=== PATIENT | female | born 1980 | race Caucasian/White ===

== ENCOUNTER 2017-09-14 13:43 | Emergency (ER) | payer OTHER ==
--- NOTE | 2017-09-14 14:11 | ERPHSYRPT ---
- History of Present Illness Time Seen by Provider: 09/14/17 13:57 Source: patient Exam Limitations: no limitations Patient Subjective Stated Complaint: PT REPORTS LEFT SIDED MOUTH PAIN BEGINNING A FEW DAYS AGO REPORTS INCREASING WITH TIME-UNSURE OF FEVER-REPORTS PRESSURE AND PAIN TO THAT SIDE OF FACE Triage Nursing Assessment: PT PINK WARM AND [id number] EASY AND NONLABORED- DENTAL CARRIES NOTED Physician History: The patient is a 36-year-old female complaining that she is had some upper left front molar pain that is been worsening over the past week. The pain has gone up into her left nose and cheek. The pain is worse when she opens her mouth and breathes in. The pain is worse with hot or cold liquids. She thinks she may have a cavity. She has tried several dentist but is unable to get in for a minimum of 2 weeks. She requests an antibiotic and some pain relief. Her past medical history is unremarkable. Timing/Duration: gradual onset Severity: moderate ENT Location: dental Prearrival Treatment: over the counter meds Associated Symptoms: facial pain/swelling Allergies/Adverse Reactions: azithromycin [From Zithromax] Adverse Reaction (Severe, Verified 09/14/17 13:54) Vomiting Home Medications: Lisinopril 10 mg [Zestril 10 MG] 10 mg PO DAILY 09/14/17 [History] Hx Tetanus, Diphtheria Vaccination/Date Given: Yes Hx Influenza Vaccination/Date Given: No Hx Pneumococcal Vaccination/Date Given: No Immunizations Up to Date: Yes - Review of Systems Constitutional: No Fever, No Chills Eyes: No Symptoms Ears, Nose, & Throat: Mouth Pain Respiratory: No Cough, No Dyspnea Cardiac: No Chest Pain, No Edema, No Syncope Abdominal/Gastrointestinal: No Abdominal Pain, No Nausea, No Vomiting, No Diarrhea Genitourinary Symptoms: No Dysuria Musculoskeletal: No Back Pain, No Neck Pain Skin: No Rash Neurological: No Dizziness, No Focal Weakness, No Sensory Changes Psychological: No Symptoms Endocrine: No Symptoms Hematologic/Lymphatic: No Symptoms Immunological/Allergic: No Symptoms All Other Systems: Reviewed and Negative - Past Medical History Pertinent Past Medical History: No - Past Surgical History Past Surgical History: Yes Musculoskeletal: Orthopedic Surgery Other Surgical History: right shoulder surgery - Social History Smoking Status: Never smoker Exposure to second hand smoke: No Drug Use: none Patient Lives Alone: No Significant Family History: no pertinent family hx - Female History Hx Last Menstrual Period: LAST WEEK Hx Now: No - Nursing Vital Signs Nursing Vital Signs: Initial Vital Signs Temperature 98.2 F 09/14/17 13:50 Pulse Rate 89 09/14/17 13:50 Respiratory Rate 18 09/14/17 13:50 Blood Pressure 189/100 09/14/17 13:50 O2 Sat by Pulse Oximetry 98 09/14/17 13:50 Pain Scale Pain Intensity 20 - Physical Exam General Appearance: no apparent distress, alert Eye Exam: bilateral eye: normal inspection Ear Exam: bilateral ear: auricle normal Nasal Exam: normal inspection Throat Exam: dental tenderness (left upper anterior molar) Neck Exam: supple Cardiovascular/Respiratory Exam: normal breath sounds, regular rate/rhythm Abdominal Exam: non-tender, soft Neurologic Exam: alert, oriented x 3, sensation nml, No motor deficits Skin Exam: normal color, warm, dry SpO2 Interpretation: normal SpO2: 98 Oxygen Delivery: Room Air - Progress Progress: improved Counseled pt/family regarding: diagnosis, need for follow-up (dentist) - Departure Time of Disposition: 14:16 Departure Disposition: Home Clinical Impression: Pain, dental Condition: Stable Critical Care Time: No Referrals: PRATIK NAIR [Primary Care Provider] - Additional Instructions: You have dental pain that is likely caused by a cavity exposing the nerve in the tooth. You were given Toradol 60 mg IM in the ER. Take penicillin 500 mg 4 times a day for 10 days. Take naproxen 500 mg every 12 hours as needed for pain. Take Tylenol No. 3 one tablet every 4-6 hours as needed for pain. Apply dental wax [id number] to the painful tooth as needed. Follow-up with dentist at the soonest possible appointment. Prescriptions: Codeine Phosphate/APAP #3 [Tylenol #3 Tablet] 1 tab PO Q4-6HPRN PRN #10 tablet PRN Reason: Pain Naproxen 500 mg PO BID PRN #30 tablet. Penicillin V Potassium 500 mg PO QID #40 tablet
[2017-09-14] MEDS ORDERED: TORAdol 30 mg Injection IM ONE (14:17)
[2017-09-14] MEDS ORDERED: TORAdol 30 mg Injection ONE (14:22)
[2017-09-14 14:34] VITALS: BP 135/88; PULSE 88; O2SAT 97
== END 2017-09-14 14:33 | disposition home or self-care (01) ==
LOC: ED 13:43
DX: K08.89 Other specified disorders of teeth and supporting structures (principal)
CPT/HCPCS: 96372; 99283; 99284; J1885

== ENCOUNTER 2022-06-22 15:41 | Emergency (ER) | payer OTHER ==
[2022-06-22] MEDS ORDERED: TORAdol 30 mg Injection IM ONE (16:25)
[2022-06-22] MEDS ORDERED: TORAdol 30 mg Injection ONE (16:30)
--- NOTE | 2022-06-22 16:34 | ERPHSYRPT ---
- History of Present Illness Time Seen by Provider: 06/22/22 16:00 Source: patient Exam Limitations: no limitations Patient Subjective Stated Complaint: Pt "tweeked" her back approx 4-5 months ago and has been taking Tylenol and IBU ever since and has been taking way too much, the pain is at the lower center and radiates to the right side Triage Nursing Assessment: Pt brought self to the ER, vitals wnl, rates pain as 8/10, pulses normal, states that she hasn't been to her doctor because she works 6 days a week so she hasn't been to the doctor although there has been some hydrocodone written for her, pt's job requires her to lift and bend, doesn't appear to be in any distress Physician History: Patient is a 41-year-old female presents to the emergency department for evaluation of back pain. Patient has been experiencing back pain for approximately 4 to 5 months. 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 Patient states that her current job requires her to lift and bend and twist. So patient's back pain started approximately 6 months into her physically active job. Patient also [employer] wood for heat. Patient states that lifting wood has exacerbated her back pain. Patient was working this evening and her coworkers advised her to come to our ED as she appeared uncomfortable. There has been no acute change in her baseline level of back pain. Patient has not followed up with her primary care doctor simply because she has been too busy working and cannot take any time off. Pain described as an ache that is midline however radiates to the right SI joint area. No blunt trauma. No fever. No change in bowel bladder function. No saddle anesthesia. Patient currently rates pain 8 out of 10. Patient has been taking Tylenol and ibuprofen at home. Patient also has a prescription for hydrocodone. Patient is otherwise healthy. She denies a history of back pain otherwise. Patient voices no other complaints or concerns at this time. Portions of this note were created with voice recognition technology. There may be grammatical, spelling, punctuation or sound alike errors Timing/Duration: other (4 to 5 months) Method of Injury: lifting, twisted, other (Repetitive motion, lifting twisting bending) Back Pain Location: lumbar spine Severity of Pain-Max: moderate Severity of Pain-Current: mild Associated Symptoms: denies symptoms Previous symptoms: no prior history Allergies/Adverse Reactions: azithromycin [From Zithromax] Adverse Reaction (Severe, Verified 09/14/17 13:54) Vomiting Home Medications: Lisinopril 10 mg [Zestril 10 MG] 20 mg PO DAILY 09/14/17 [History] Amlodipine Besylate 10 mg PO DAILY 06/22/22 [History] Atorvastatin Calcium 20 mg PO DAILY 06/22/22 [History] Metformin HCl 500 mg [Glucophage 500 MG] 500 mg PO BIDWM 06/22/22 [History] Phentermine HCl 37.5 mg PO DAILY 06/22/22 [History] Hx Tetanus, Diphtheria Vaccination/Date Given: Yes Hx Influenza Vaccination/Date Given: No Hx Pneumococcal Vaccination/Date Given: No Travel Risk - International Travel Have you traveled outside of the country in past 3 weeks: No - Coronavirus Screening Are you exhibiting any of the following symptoms?: No Close contact with a COVID-19 positive Pt in past 14-21 Days: No - Vaccine Status Have you recieved a Covid-19 vaccination: Yes 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[employer] - Vaccination Dates Date of 2cond Vaccination (if applicable): unk - Review of Systems Constitutional: No Symptoms, No Fever, No Chills Eyes: No Symptoms Ears, Nose, & Throat: No Symptoms Respiratory: No Symptoms, No Cough, No Dyspnea Cardiac: No Symptoms, No Chest Pain, No Edema, No Syncope Abdominal/Gastrointestinal: No Symptoms, No Abdominal Pain, No Nausea, No Vomiting, No Diarrhea Genitourinary Symptoms: No Symptoms, No Dysuria Musculoskeletal: No Symptoms, No Back Pain, No Neck Pain Skin: No Symptoms, No Rash Neurological: No Symptoms, No Dizziness, No Focal Weakness, No Sensory Changes Psychological: No Symptoms Endocrine: No Symptoms Hematologic/Lymphatic: No Symptoms Immunological/Allergic: No Symptoms All Other Systems: Reviewed and Negative - Past Medical History Pertinent Past Medical History: Yes Cardiac History: Hypertension Endocrine Medical History: Diabetes Type II - Past Surgical History Past Surgical History: Yes Musculoskeletal: Orthopedic Surgery Other Surgical History: right shoulder surgery - Social History Smoking Status: Never smoker Exposure to second hand smoke: Yes Drug Use: marijuana Patient Lives Alone: No Significant Family History: no pertinent family hx - Female History Hx Now: No (depo) - Nursing Vital Signs Nursing Vital Signs: Initial Vital Signs Temperature 98.1 F 06/22/22 15:49 Pulse Rate 90 06/22/22 15:49 Blood Pressure 128/85 06/22/22 15:49 O2 Sat by Pulse Oximetry 100 06/22/22 15:49 Pain Scale Pain Intensity [Right Lower 8 Lateral Back] Pain Intensity 8 - Physical Exam General Appearance: no apparent distress, alert Eye Exam: PERRL/EOMI, eyes nml inspection Ears, Nose, Throat Exam: normal ENT inspection, TMs normal, pharynx normal Neck Exam: normal inspection, non-tender, supple, full range of motion, No meningismus, No midline tenderness Respiratory Exam: normal breath sounds, lungs clear, airway intact, No respiratory distress Cardiovascular Exam: regular rate/rhythm, normal heart sounds, normal peripheral pulses Gastrointestinal Exam: soft, No tenderness, No mass Back Exam: other (Tenderness palpation over the right SI joint. Slightly towards the center as well however overlying soft tissue intact. No signs of trauma. No radiation down to the lower extremities.) Extremity Exam: normal inspection, normal range of motion, No calf tenderness, No pedal edema Peripheral Pulses: dorsalis-pedis (R): 2+, dorsalis-pedis (L): 2+ Neurologic Exam: alert, oriented x 3, cooperative, quality assurance tester II-XII nml as tested, normal mood/affect, nml station & gait, sensation nml, No motor deficits Skin Exam: normal color, warm, dry, No rash Lymphatic Exam: No adenopathy SpO2 Interpretation: normal SpO2: 100 O2 Delivery: Room Air - Course Nursing assessment & vital signs reviewed: Yes - Radiology Exams L-Spine X-ray Interpretation: Teleradiologist Report (6 lumbar segments. Multilevel endplate spurring L6 L5 degenerative facet hypertrophy. Otherwise negative) Ordered Tests: Active Orders 24 hr Category Date Time Status LUMBAR LIMITED (2 OR 3 VIEWS) Stat Exams 06/22/22 16:24 Completed Medication Summary Discontinued Medications Generic Name Dose Route Start Last Admin Trade Name Freq PRN Reason Stop Dose Admin Ketorolac Tromethamine 30 mg 06/22/22 16:25 06/22/22 16:31 Ketorolac Tromethamine 30 Mg/Ml Inj IM 06/22/22 16:26 30 mg STAT ONE Administration Ketorolac Tromethamine Confirm 06/22/22 16:30 Ketorolac Tromethamine 30 Mg/Ml Inj Administered 06/22/22 16:31 Dose 30 mg .ROUTE .STK-MED ONE Lab/Rad Data: Laboratory Results 06/22/22 Range/Units 16:28 Urine Color YELLOW (YELLOW) Urine Appearance SLIGHTLY CLOUDY A (CLEAR) Urine pH 5.0 (5-6) Ur Specific [place] >=1.030 A (1.005-1.025) POC Urine Protein Conf NEGATIVE (Negative) Urine Ketones NEGATIVE (NEGATIVE) Urine Nitrite NEGATIVE (NEGATIVE) Urine Bilirubin NEGATIVE (NEGATIVE) Urine Urobilinogen 0.2 (0-1) mg/dL Urine Leukocytes SMALL A (NEGATIVE) Urine RBC MODERATE A (0-5) Omid/ul Urine Microscopic RBC Pending Urine Microscopic WBC Pending Ur Epithelial Cells Pending Urine Bacteria Pending Ur Culture Indicated? Pending Urine Glucose NEGATIVE (NEGATIVE) mg/dL - Progress Progress: improved Progress Note: Patient is a 41-year-old female presents to our ED for evaluation of back pain. Physical exam reveals some tenderness lower midline spine and right SI joint. Overlying soft tissue intact. Patient symptoms are localized. No systemic manifestations pain is acute on chronic. Complexity is mild. No significant comorbidities to attribute her symptoms to. No history of back pain however she has been experiencing back pain since she started her new job which is physically demanding. X-ray lumbar spine ordered. Mild degenerative changes observed. No fractures or dislocations. Patient received a dose of Toradol for pain control. In light of patient's history of diabetes we did not administer a dose of prednisone as this would spike her blood sugar. Patient reassessed. Pain significantly improved. Patient states she is ready for discharge. Plan of care discussed with patient. She agrees to follow-up with her primary care doctor in 48 hours for reevaluation. Patient may likely benefit from a physical therapy evaluation/work hardening/ergonomic training as patient's job requires excessive lifting twisting and bending. Patient has means to follow through with follow-up. Complexity of problem is mild. Amount and complexity of data reviewed and analyzed is mild. Risks of complication and/or morbidity/mortality of patient management is mild. No critical care time. Patient served as a reliable independent historian. Time spent during discharge 5 to 10 minutes. Patient voices no other complaints or concerns at this time. Portions of this note were created with voice recognition technology. There may be grammatical, spelling, punctuation or sound alike errors 06/22/22 17:20 Counseled pt/family regarding: lab results, diagnosis, need for follow-up, rad results - Departure Departure Disposition: Home Clinical Impression: Back pain, Lumbosacral strain, Repetitive motion injury Condition: Stable Critical Care Time: No Referrals: PRATIK NAIR [Primary Care Provider] - Follow up/PCP as directed Additional Instructions: Discharge/Care Plan ALBERT CELESTE TYRELL was seen on 06/22/22 in the Emergency Room. The patient was counseled regarding Diagnosis,Lab results, Imaging studies, need for follow up and when to return to the Emergency Room. Prescriptions given: Discharge Note I have spoken with the patient and/or caregivers. I have explained the patient's condition, diagnosis and treatment plan based on the information available to me at this time. I have answered the patient's and/or caregiver's questions and addressed any concerns. The patient and/or caregivers have as good understanding of the patient's diagnosis, condition and treatment plan as can be expected at this point. The vital signs have been stable. The patient's condition is stable and appropriate for discharge from the emergency department. The patient will pursue further outpatient evaluation with the primary care physician or other designated or consulting physician as outlined in the discharge instructions. The patient and/or caregivers are agreeable to this plan of care and follow-up instructions have been explained in detail. The patient and/or caregivers have received these instruction. The patient/and or caregivers are aware that any significant change in condition or worsening of symptoms should prompt an immediate return to this or the closest emergency department or call 911.
[2022-06-22 16:59] LABS: Appearance SLIGHTLY CLOUDY (CLEAR); Bilirubin NEGATIVE (NEGATIVE); Glucose NEGATIVE (NEGATIVE); Ketones NEGATIVE (NEGATIVE); Nitrite NEGATIVE (NEGATIVE); Protein,Urine Dip NEGATIVE (Negative); RBC MODERATE Ery/ul (0-5); Specific Gravity >=1.030 (1.005-1.025); Urobilinogen 0.2 mg/dL (0-1)
--- NOTE | 2022-06-22 16:59 | XRAY ---
Indication: Chronic low back pain for months. Comparison: None 3 view lumbar spine demonstrates 6 lumbar segments with minimal multilevel thoracolumbar endplate spurring and mild bilateral L6-S1 degenerative facet hypertrophy. No other bony, articular, or soft tissue abnormalities.
[2022-06-22 17:13] LABS: Bacteria Few /HPF (None Seen); Epithelial Cells Moderate /HPF (None Seen); WBC 51-100 /HPF (0-5)
[2022-06-22 17:25] VITALS: BP 117/82; PULSE 78
[2022-06-22 17:27] VITALS: O2SAT 100
[2022-06-22 17:31] LABS: Urine Cultured Indicated? YES
== END 2022-06-22 17:36 | disposition home or self-care (01) ==
LOC: ED 15:41
DX: S39.012A Strain of muscle, fascia and tendon of lower back, initial encounter (principal); X50.3XXA Overexertion from repetitive movements, initial encounter; Y99.0 Civilian activity done for income or pay; I10 Essential (primary) hypertension; E11.9 Type 2 diabetes mellitus without complications; Z79.891 Long term (current) use of opiate analgesic; Z79.84 Long term (current) use of oral hypoglycemic drugs; Z79.899 Other long term (current) drug therapy
CPT/HCPCS: 72100; 81015; 87086; 96372; 99283; J1885

== ENCOUNTER 2022-11-29 22:16 | Emergency (ER) | payer OTHER ==
--- NOTE | 2022-11-29 22:21 | ERPHSYRPT ---
- History of Present Illness Time Seen by Provider: 11/29/22 22:21 Source: patient Exam Limitations: no limitations Physician History: This is an overweight 42-year-old white female patient who has had dysuria and burning and swelling symptoms in the external and internal vaginal region intermittently for 2 months. She has seen several different physicians and outpatient clinics for this. She is never seen an infectious disease specialist or a diamond sizer and sorter. Approxi-1 month ago she was treated for urinary tract infection and trichomonas. She has been given several different treatments of Flagyl antibiotic followed by [facility] mouthwash for the post antibiotic thrush/fungal infection for being on antibiotic treatment. Patient has a history of hyperlipidemia, hypertension and type 2 diabetes. She is seen either her physician or outpatient [facility] a few times recently. Most recently she was seen at [facility] this morning. She was told to douche. Patient has no chest pain. She has had no fever. She has no abdominal pain. She is not short of breath. Patient states that she does not have vaginal discharge Timing/Duration: intermittent, worse, other (Intermittently over the last 2 months) Activites at Onset: none Quality: burning Onset Location: vulvar pain Pain Radiation: none Severity of Pain-Max: mild Severity of Pain-Current: mild Prior abdominal problems: similar symptoms, STD (Approximately 1 month ago was diagnosed with trichomonas) Sexual intercourse history: non-contributory Modifying Factors: Improves With: nothing Associated Symptoms: denies symptoms Allergies/Adverse Reactions: azithromycin [From Zithromax] Adverse Reaction (Severe, Verified 11/29/22 22:56) Vomiting Home Medications: Lisinopril 10 mg [Zestril 10 MG] 20 mg PO DAILY 09/14/17 [History] Amlodipine Besylate 10 mg PO DAILY 06/22/22 [History] Atorvastatin Calcium 20 mg PO DAILY 06/22/22 [History] Metformin HCl 500 mg [Glucophage 500 MG] 500 mg PO BIDWM 06/22/22 [History] Phentermine HCl 37.5 mg PO DAILY 06/22/22 [History] Hx Tetanus, Diphtheria Vaccination/Date Given: Yes Hx Influenza Vaccination/Date Given: No Hx Pneumococcal Vaccination/Date Given: No Travel Risk - International Travel Have you traveled outside of the country in past 3 weeks: No - Coronavirus Screening Are you exhibiting any of the following symptoms?: No Close contact with a COVID-19 positive Pt in past 14-21 Days: No - Vaccine Status Have you recieved a Covid-19 vaccination: Yes 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[id number] - Vaccination Dates Date of 2cond Vaccination (if applicable): unk - Review of Systems Constitutional: No Symptoms Eyes: No Symptoms Ears, Nose, & Throat: Nose Pain Respiratory: No Symptoms Cardiac: No Symptoms Abdominal/Gastrointestinal: No Symptoms Genitourinary Symptoms: Dysuria, Vaginal Itching Musculoskeletal: No No Symptoms Skin: No Symptoms Neurological: No Symptoms Endocrine: No Symptoms Hematologic/Lymphatic: No Symptoms Immunological/Allergic: No Symptoms All Other Systems: Reviewed and Negative - Past Medical History Pertinent Past Medical History: Yes Cardiac History: Hypertension Endocrine Medical History: Diabetes Type II - Past Surgical History Past Surgical History: Yes Musculoskeletal: Orthopedic Surgery Other Surgical History: right shoulder surgery - Social History Smoking Status: Never smoker Exposure to second hand smoke: Yes Drug Use: marijuana Patient Lives Alone: No Significant Family History: no pertinent family hx - Nursing Vital Signs Nursing Vital Signs: Initial Vital Signs Temperature 97.4 F 11/29/22 23:02 Pulse Rate 90 11/29/22 23:02 Respiratory Rate 16 11/29/22 23:02 Blood Pressure 148/90 11/29/22 23:02 O2 Sat by Pulse Oximetry 99 11/29/22 23:02 Pain Scale Pain Intensity 0 - Physical Exam General Appearance: no apparent distress, alert, anxiety, obese Eye Exam: PERRL/EOMI, eyes nml inspection Ears, Nose, Throat Exam: normal ENT inspection, moist mucous membranes Neck Exam: normal inspection, non-tender, supple, full range of motion Respiratory Exam: airway intact, No chest tenderness, No respiratory distress Gastrointestinal/Abdomen Exam: No tenderness Pelvic Exam: normal external exam, other (Normal external exam without masses. No cellulitis. There is no evidence for vaginal discharge) Rectal Exam: not done Extremity Exam: normal inspection, normal range of motion, pelvis stable Neurologic Exam: alert, oriented x 3, cooperative, oreman II-XII nml as tested, normal mood/affect, nml cerebellar function, nml station & gait, sensation nml Skin Exam: normal color, warm, dry Lymphatic Exam: No adenopathy SpO2 Interpretation: normal O2 Delivery: Room Air - Course Nursing assessment & vital signs reviewed: Yes Ordered Tests: Active Orders 24 hr Category Date Time Status CULTURE,URINE Stat Lab 11/29/22 23:31 Received UA W/RFX UR CULTURE Stat Lab 11/29/22 23:31 Completed Lab/Rad Data: Laboratory Results 11/29/22 11/29/22 Range/Units 23:31 23:31 Urine Color Yellow (Yellow) Urine Appearance Sl Cloudy* A (Clear) Urine pH 5.0 (4.6-8.0) Ur Specific [place] >=1.030 A (1.005-1.030) Urine Protein 30 (Negative) Urine Glucose (UA) Negative (Negative) mg/dL Urine Ketones Negative (Negative) Urine Blood Moderate A (Negative) Urine Nitrite Negative (Negative) Urine Bilirubin Negative (Negative) Urine Urobilinogen 0.2 (0.2) mg/dL Ur Leukocyte Esterase Moderate A (Negative) Urine Microscopic RBC 21-50 A (0-5) /HPF Urine Microscopic WBC >100 A (0-5) /HPF Ur Epithelial Cells Rare (None Seen) /HPF Calcium Oxalate Crystal 6-10 A (None Seen) /HPF Urine Bacteria Rare A (None Seen) /HPF Urine Yeast (Budding) Few A (None Seen) /HPF Urine Culture Reflexed YES (NO) Chlamydia DNA Probe DETECTED (NEGATIVE) N.gonorrhoeae DNA Probe DETECTED (NEGATIVE) - Progress Progress: unchanged Air Movement: good Progress Note: 11/30/22 01:44 This patient's medical issue is 1 of low complexity. The level of complexity and the work-up performed is based on the review of the patient's past medical history, review of her medication list, review of her drug allergy list, history present illness and physical findings on examination. Blood Culture(s) Obtained: No Antibiotics given: Yes Counseled pt/family regarding: lab results, diagnosis, need for follow-up Medical Desision Making - Diagnostic Testing Diagnostic test were ordered, analyzed, and reviewed by me: Yes - Risk of complications The pt has a mod risk of morbidity or mortality based on: Need for prescription drug management - Departure Departure Disposition: Home Clinical Impression: Urinary tract infection, Yeast UTI Condition: Stable Critical Care Time: No Referrals: PRATIK NAIR [Primary Care Provider] - Follow up/PCP as directed Additional Instructions: Drink plenty of fluids. Take your medication as prescribed. Follow-up with your diamond sizer and sorter and/or infectious disease doctor for further evaluation management. Prescriptions: Smz/Tmp Ds Tablet [Bactrim Ds Tablet] 1 udtab PO BID #14 tablet Fluconazole 100 mg [Diflucan 100 MG] 100 mg PO DAILY #2 tablet
[2022-11-30 00:19] VITALS: O2SAT 100
[2022-11-30 00:42] LABS: Appearance Sl Cloudy* (Clear); Bilirubin Negative (Negative); Blood Moderate (Negative); Glucose, Urine Negative (Negative); Ketones Negative (Negative); Leukocyte Esterase Moderate (Negative); Nitrite Negative (Negative); Protein,Urine Dip 30 (Negative); Specific Gravity >=1.030 (1.005-1.030); Urobilinogen 0.2 mg/dL (0.2)
[2022-11-30 00:43] LABS: Bacteria Rare /HPF (None Seen); Epithelial Cells Rare /HPF (None Seen); RBC 21-50 /HPF (0-5); WBC >100 /HPF (0-5)
[2022-11-30 00:44] LABS: ADD URINE CULTURE? YES (NO); Budding Yeast Few /HPF (None Seen)
[2022-11-30 01:33] LABS: CHLAMYDIA DNA DETECTED (NEGATIVE); GC DNA Probe DETECTED (NEGATIVE)
[2022-11-30] MEDS ORDERED: Levofloxacin 500 MG Tablet PO ONE (01:42)
[2022-11-30] MEDS ORDERED: DIFLUCAN PO ONE (01:44)
[2022-11-30] MEDS ORDERED: Rocephin 1000 MG INJ IM ONE (01:53)
[2022-11-30] MEDS ORDERED: Vibramycin 100 MG PO ONE (01:54)
[2022-11-30] MEDS ORDERED: Vibramycin 100 MG ONE (02:00)
[2022-11-30] MEDS ORDERED: Rocephin 1000 MG INJ ONE (02:00)
[2022-11-30] MEDS ORDERED: Diflucan 100 MG ONE (02:04)
[2022-11-30 02:06] VITALS: BP 123/74; PULSE 71
== END 2022-11-30 02:21 | disposition home or self-care (01) ==
LOC: ED 22:16
DX: B37.49 Other urogenital candidiasis (principal); A54.9 Gonococcal infection, unspecified; A74.9 Chlamydial infection, unspecified; R30.0 Dysuria; N76.0 Acute vaginitis; E78.5 Hyperlipidemia, unspecified; I10 Essential (primary) hypertension; E11.9 Type 2 diabetes mellitus without complications; Z79.84 Long term (current) use of oral hypoglycemic drugs; Z79.899 Other long term (current) drug therapy
CPT/HCPCS: 81001; 87077; 87086; 87186; 87491; 87591; 96372; 99283; J0696; A9270-GY